=== PATIENT | male | born 1960 | race Caucasian/White ===

== ENCOUNTER 2018-07-14 18:42 | Emergency (ER) | payer MEDICARE, OTHER ==
[2018-07-14] MEDS: LIDOCAINE 1% (MPF) 5 ML VIAL INFIL (22:06)
[2018-07-15] MEDS: ACETAMINOPHEN 500 MG TAB PO (00:11)
== END 2018-07-15 01:38 | disposition home or self-care (01) ==
LOC: FTE 07-15 01:38
DX: L72.9 Follicular cyst of the skin and subcutaneous tissue, unspecified (principal)
CPT/HCPCS: 10060; 99283-25